=== PATIENT | female | born 1940 | race Caucasian/White ===

== ENCOUNTER → 2016-07-30 | Day surgery (SDC) | payer OTHER ==
[~2016-07-30] VITALS: Ht 162.6 cm; Wt 65.8 kg
[~2016-07-30] MED LIST: ARIPIPRAZOLE2 MG PO; CEVIMELINE HCL30 MG PO; FOLIC ACID1 MG PO; HYDROCODONE-AP1 EAC6 PO; IRON325 PO; LANTUS SOL100 UNIT/1 SUBQ; LEVOTHYROXINE 0.15MG PO; METHOTREXATE 22.5 MG PO; NEURONTIN 300300 M1 PO; PREMARIN0.45 MG PO; REMICADE 1100 MG/VIA IV; VENLAFAXINE HC150 M1 PO; VITAMIN B-12500 MCG PO; VITAMIN D2000 UNI1 PO; WELLBUTRIN XL300 MG PO
--- NOTE | ~2016-07-30 | O ---
[facility] [place] [address] OPERATIVE REPORT Name: MISA CLARKE Room #: REG [facility].#: [id number] Admission: 07/30/16 Attend Phys: Shaheen Mckinnon MD Discharge: Date of : 44 Report #: [id number] THIS REPORT FOR: //name// CC: Adan Mckinnon DATE OF SERVICE: 07/30/2016 SURGEON: Shaheen Mckinnon MD SUPERVISOR OF COMMUNICATIONS: None. PREOPERATIVE DIAGNOSIS: Nasolacrimal duct obstruction, right-sided. POSTOPERATIVE DIAGNOSIS: Nasolacrimal duct obstruction, right-sided. OPERATIONS PERFORMED: 1. Incisional dacryocystorhinostomy. 2. Nasal surgical video endoscopy. 3. Silicone intubation. ANESTHESIA: General. COMPLICATIONS: None. INDICATIONS FOR PROCEDURE: This patient has an acquired nasolacrimal duct obstruction with chronic tearing and discharge. The current procedures are undertaken in order to improve the patient's level of comfort and visual clarity and to reduce the risk of recurrent infection. Informed consent was obtained to include but not limited to the potential risk for loss of vision, bleeding, infection, failure to improve the problem, scarring and the potential need for further surgery. DESCRIPTION OF OPERATION: The patient was taken to the operating room, where general anesthesia was administered. The medial canthal area was then generously infiltrated with 2% Xylocaine with epinephrine mixed with equal parts of 0.75% Marcaine with Wydase. The same anesthetic mixture was then used to anesthetize the lateral wall of the nose. The middle meatus was then packed with Afrin-soaked Cottonoids. The patient was subsequently prepped and draped in the usual sterile fashion. A skin-marking pen was then used to outline an incision over the anterior lacrimal crest inferiorly in the medial canthal area. The incision was then [facility] [address] [place] [address] OPERATIVE REPORT Name: MISA CLARKE Room #: REG [facility].#: [id number] Admission: 07/30/16 Attend Phys: Shaheen Mckinnon MD Discharge: Date of : 44 Report #: [id number] made with a 15 blade. The dissection was then carried down through the soft tissue until the periosteum was identified. Hemostasis was achieved with diligent monopolar cautery. The periosteum was then incised over the anterior lacrimal crest and then gently reflected laterally out of the lacrimal sac fossa. The lacrimal sac was retracted and the thin bone of the lacrimal sac fossa was gently infractured with a hemostat. Multiple rongeur bites were then used to create an osteotomy that was approximately 1.5 cm in diameter. The nasal mucosa was then injected with the same anesthetic mixture used at the beginning of the case. The nasal mucosa was then incised and an anteriorly hinged nasal mucosal flap made. The flap was drawn out of the field with interrupted 4-0 chromic sutures. The puncta were then dilated with a double-ended punctum dilator. Colon tubes were then passed into the lacrimal sac and its margins were identified. A large anteriorly hinged lacrimal sac flap was subsequently created. The Colon tubes were passed into the nose on a groove director transnasally. The anterior lacrimal sac flaps and nasal mucosal flaps were closed with interrupted 4-0 chromic sutures. The nasal surgical video endoscope was then brought into the field. The ostium was inspected and found to not be obstructed by the middle turbinate. The ostium was anterior and inferior to the root of the turbinate. There was no evidence of any septal obstruction of the newly created ostium. The subcutaneous structures around the wound were then closed with multiple interrupted 4-0 chromic sutures. The skin was closed with interrupted 6-0 plain gut sutures. The Cloon tubes were then secured to themselves with 3 square throws. The Colon tubes were then secured to the lateral wall of the nose with a 5-0 Prolene suture. Antibiotic steroid drops were then placed on the surface of the eye and an antibiotic ointment on the incision. Two eye pads were then taped in place. The patient was transported to the recovery area, having tolerated the procedure well with no anesthetic or operative complications being noted. <ELECTRONICALLY SIGNED> By: Shaheen Mckinnon MD 08/03/16 0614 [id number] Shaheen Mckinnon MD /nt
[2016-07-30 07:06] VITALS: BP 164/91
[2016-07-30 07:10] LABS: HEMATOCRIT 35.7 % (37.0-47.0); HEMOGLOBIN 12.2 gm/dL (12.0-15.0); MCH 29.8 pg (26.0-34.0); MCHC 34.1 % (28.0-37.0); MCV 87.5 fL (80.0-100.0); RBC 4.08 mil/uL (4.20-5.00); RDW 16.6 % (10.5-14.5); WBC 8.7 thou/uL (4.0-11.0)
== END | disposition home or self-care (01) ==
LOC: OR 05:15
PROVIDERS: Ophthalmology
DX: H04.551 Acquired stenosis of right nasolacrimal duct (principal); F41.9 Anxiety disorder, unspecified; F32.9 Major depressive disorder, single episode, unspecified; D64.9 Anemia, unspecified; M06.9 Rheumatoid arthritis, unspecified; E11.9 Type 2 diabetes mellitus without complications; Z96.651 Presence of right artificial knee joint; Z98.42 Cataract extraction status, left eye; Z98.41 Cataract extraction status, right eye; Z96.1 Presence of intraocular lens; Z90.710 Acquired absence of both cervix and uterus; Z85.850 Personal history of malignant neoplasm of thyroid
CPT/HCPCS: 50101; 50386; 50398; 51636; 51777; 56528; 56531; 62110; 62900; 70005